=== PATIENT | female | born 1940 | race Hispanic/Latino ===

== ENCOUNTER 2018-08-21 14:41 | Outpatient (CLI) | payer MEDICARE | END 2018-08-21 14:42 | disposition home or self-care (01) | LOC: LABHHL 14:41 | PROVIDERS: ATTEND Surgery | DX: N63.21 Unspecified lump in the left breast, upper outer quadrant (principal); E78.00 Pure hypercholesterolemia, unspecified; I10 Essential (primary) hypertension; J45.909 Unspecified asthma, uncomplicated; K21.9 Gastro-esophageal reflux disease without esophagitis; Z90.710 Acquired absence of both cervix and uterus | CPT/HCPCS: 88112 ==

== ENCOUNTER 2018-08-27 11:08 | Outpatient (CLI) | payer MEDICARE, BC ==
--- NOTE | 2018-08-27 13:53 | Ultrasound Report ---
LEFT BREAST ULTRASOUND: 08/27/18 11:08:00 CLINICAL: A circumscribed mass or cyst in the far posterior outer left breast. COMPARISON: 08/21/18 and 08/13/18 mammograms. FINDINGS: Ultrasound of the left breast demonstrated an oval benign cyst at 5:30 o'clock near the pectoral muscle and 5.5 cm from the nipple. It measures 6 x 3 x 5 mm and correlates with the mammographic density.An additional benign cysts at 6 o'clock 2 cm from the nipple measures 5 mm. No solid mass. IMPRESSION: Left benign cyst at 5:30 o'clock 5.5 cm from the nipple. BI-RADS 2 - - Benign RECOMMENDATION: Routine mammographic screening.
== END 2018-08-27 11:09 | disposition home or self-care (01) ==
LOC: SPVWC 11:08
PROVIDERS: ATTEND Surgery
DX: N60.02 Solitary cyst of left breast (principal); E78.00 Pure hypercholesterolemia, unspecified; I10 Essential (primary) hypertension; K21.9 Gastro-esophageal reflux disease without esophagitis; M19.90 Unspecified osteoarthritis, unspecified site; J45.909 Unspecified asthma, uncomplicated; Z90.710 Acquired absence of both cervix and uterus